=== PATIENT | female | born 1980 | race Caucasian/White ===

== ENCOUNTER 2018-07-28 09:07 | Emergency (ER) | payer BC ==
[~2018-07-28] VITALS: Ht 165.1 cm; Wt 68.0 kg
--- NOTE | 2018-07-28 09:20 | NUR ---
Pt came from triage c/o R temporal headache radiating to R ear, back of the head and scalp since Tuesday. Pt stated pain woke her up from her sleep. Saw PMD few days ago and was given Gabapentin rx. Pt last took Gabapentin at 0400, ineffective. Denies any weakness or numbness. Equal strengths and symmetrical face. Alert, oriented x3. No sob noted. No s/sx of distress noted. Resp even and unlabored. Pt has a hx of migraine and stated that this is different from her usual migraine headaches. Call light within reach. Will cont to monitor.
[2018-07-28] MEDS ORDERED: ACETAMINOPHEN ES 500 MG TABLET ONE (09:27)
[2018-07-28] MEDS ORDERED: ACETAMINOPHEN ES 500 MG TABLET PO ONE (09:30)
--- NOTE | 2018-07-28 09:39 | NUR ---
Urine collected and sent to lab
[2018-07-28 09:40] LABS: BASOPHILS % (AUTO) 0.4 % (0.0-2.0); EOSINOPHILS # (AUTO) 0.3 K/uL (0.0-0.7); EOSINOPHILS % (AUTO) 4.6 % (0.0-7.0); HEMATOCRIT 38.3 % (31.2-41.9); HEMOGLOBIN 13.2 g/dL (10.9-14.3); LYMPHOCYTES # (AUTO) 1.4 K/uL (20.0-40.0); LYMPHOCYTES % (AUTO) 23.6 % (20.5-51.5); MEAN CORPUSCULAR HEMOGLOBIN 32.8 uug (24.7-32.8); MEAN CORPUSCULAR HGB CONC 35 g/dL (32.3-35.6); MEAN CORPUSCULAR VOLUME 95.2 fL (75.5-95.3); MONOCYTES # (AUTO) 0.4 K/uL (2.0-10.0); MONOCYTES % (AUTO) 7.5 % (0.0-11.0); NEUTROPHILS # (AUTO) 3.8 K/uL (1.8-8.9); NEUTROPHILS % (AUTO) 63.9 % (38.5-71.5); PLATELET COUNT (AUTO) 237 K/uL (179-408); RED BLOOD CELL COUNT(AUTO) 4.02 MIL/uL (3.63-4.92); WHITE BLOOD COUNT (AUTO) 5.9 K/uL (3.8-11.8)
[2018-07-28 09:45] LABS: *BILIRUBIN,URIN NEGATIVE (NEGATIVE); *BLOOD, URINE 2+ (NEGATIVE); *CLARITY,URINE CLEAR (CLEAR); *COLOR,URINE LIGHT YELLOW (YELLOW); *KETONES,URINE NEGATIVE (NEGATIVE); *PROTEIN,URINE NEGATIVE (NEGATIVE); *URINE HCG, QUAL NEGATIVE (NEGATIVE); *UROBILINOGEN,URINE 0.2 E.U./dl (NORMAL); LEUKOCYTE ESTERASE ,URINE NEGATIVE (NEGATIVE); NITRITE, URINE NEGATIVE (NEGATIVE); UGLUCOSE NEGATIVE (NEGATIVE)
--- NOTE | 2018-07-28 09:45 | NUR ---
Took Ibuprofen 800mg at 0300. Back from CT scan.
[2018-07-28 09:49] LABS: CREATININE 0.7 mg/dL (0.6-1.3); POTASSIUM 3.1 mmol/L (3.5-5.1)
[2018-07-28 09:54] LABS: BILIRUBIN,DIRECT 0.1 mg/dL (0.0-0.2); BILIRUBIN,TOTAL 0.5 mg/dL (0.2-1.0); TOTAL PROTEIN, SERUM 7.4 g/dL (6.4-8.2)
--- NOTE | 2018-07-28 10:08 | NUR ---
oJhn rodriguez in ED - 07/28/18 at 1008 by LEILA MD at bedside.
[2018-07-28 10:20] LABS: BACTERIA,URINE MODERATE /HPF (NONE SEEN); SQUAMOUS EPITHELIAL CELL,UR MANY /HPF (NONE SEEN); WBC,URINE 0-3 /HPF (0-3)
[2018-07-28] MEDS ORDERED: KETOROLAC TROMETHAMINE 30 MG INJ IVP ONE (10:30)
[2018-07-28] MEDS ORDERED: PSEUDOEPHEDRINE HCL 30 MG TABLET PO ONE (10:30)
[2018-07-28] MEDS ORDERED: KETOROLAC TROMETHAMINE 30 MG INJ IM ONE (10:45)
[2018-07-28] MEDS ORDERED: PSEUDOEPHEDRINE HCL 30 MG TABLET ONE (10:50)
[2018-07-28] MEDS ORDERED: KETOROLAC TROMETHAMINE 30 MG INJ ONE (10:50)
--- NOTE | 2018-07-28 11:25 | NUR ---
Patient discharged to home in stable conditon. Written and verbal after care instructions given. Patient verbalizes understanding of instructions. Pt is taking an Uber home.
[2018-07-28 11:26] VITALS: BP 138/97
== END 2018-07-28 11:27 | disposition home or self-care (01) ==
LOC: ER 09:09
DX: J32.9 Chronic sinusitis, unspecified (principal); R31.21 Asymptomatic microscopic hematuria; Z88.5 Allergy status to narcotic agent; Z88.8 Allergy status to other drugs, medicaments and biological substances
CPT/HCPCS: 36415; 70450; 80048; 80076; 81001; 84703; 85025; 85651; 96372; 99285; A4663; A9150; J1885